=== PATIENT | male | born 1945 | race Caucasian/White ===

== ENCOUNTER 2016-06-02 07:54 | Emergency (ER) | payer OTHER ==
[~2016-06-02] VITALS: Ht 180.3 cm; Wt 82.0 kg
[~2016-06-02 07:54] MED LIST: CLON.5 PO; DILA2TAB4 PO; ENAL10TA7 PO; IBUP-232 PO; KLON2TAB PO; LOVA40TA PO; PROM25SU8 PO; REST30CA PO; TAMS0.4C67 PO; XANA1TAB6 PO
[2016-06-02 07:57] VITALS: BP 131/88; PULSE 76; RESP 16; TEMP 97.7; O2SAT 100
[2016-06-02] MEDS ORDERED: PROPARACAINE HCL 0.5% OPHT SOLN 15 ML BTL LEFT EYE ONE (08:15)
[2016-06-02] MEDS ORDERED: VIGA0.5D LEFT EYE (08:16)
--- NOTE | 2016-06-02 08:17 | PD ---
HPI Chief Complaint: Eye Problems/Injury Time Seen by Provider: 08:02 Travel History International Travel<30 days: No Contact w/Intl Traveler<30days: No Traveled to known affect area: No History of Present Illness HPI Patient is a 71-year-old male presents to emergency room with complaints of left eye redness and tearing. Patient reports that he accidentally fell asleep with his contacts on last night, reports that he woke up around 4 this a.m. and took out his contacts. Patient reports that when he woke up this morning, his left eye was red and tearing. Reports that his eye feels irritated and reports that he can't stop rubbing his eyes. Reports no vision changes or blurry visions. Patient reports that he must have rubbed his eyes when he was at the gym and had his contacts on. Patient with no complaints of pressure behind the eye, patient with no other complaints. PFSH Past Medical History Hx Anticoagulant Therapy: No Anxiety: Yes Cardiovascular Problems: Yes (HTN, CHOL) Diabetes: No Diminished Hearing: No Genitourinary: Yes (ENLARGED PROSTATE) Hypertension: Yes Musculoskeletal: Yes (BACK PAIN) Immunizations Current: No Past Surgical History Joint Replacement: Yes (RTHR) Social History Alcohol Use: Yes (JEANA OR VODKA DAILY) Tobacco Use: No (QUIT IN 1983) Substance Use: No Allergies-Medications (Allergen,Severity, Reaction): Coded Allergies: Versed (Unverified Allergy, Severe, Nausea/Vomiting, 06/02/16) Reported Meds & Prescriptions Reported Meds & Active Scripts Active Vigamox Opth Drops (Moxifloxacin Opth Drops) 0.5 % Soln 2 Drop LEFT EYE TID PRN 10 Days Promethazine Hcl (Promethazine HCl) 25 Mg Tab 25 Mg PO Q6H PRN FOR NAUSEA/VOMITING Flomax (Tamsulosin HCl) 0.4 Mg Cap 0.4 Mg PO DAILY Dilaudid (Hydromorphone HCl) 2 Mg Tab 2 Mg PO Q4H Motrin (Ibuprofen) 600 Mg Tab 600 Mg PO TID Reported Xanax 1 mg (Alprazolam) Alprazolam 1 mg Tab 1 Tab PO Q6H PRN Klonopin (Clonazepam) 2 Mg Tab 2 Mg PO DAILY Klonopin (Clonazepam) Unknown Strength Tab Unknown Dose PO BID Restoril 30 mg (Temazepam) 30 Mg Cap 1 Cap PO HS Enalapril Maleate/Hydroch (Enalapril Maleate & Hydrochlor) 10 Mg Tab 10 Mg PO DAILY Lovastatin 40 Mg Tab 40 Mg PO HS Review of Systems General / Constitutional: No: Fever Eyes: Positive: Drainage, Redness, Tearing, No: Blurred Vision, Photophobia, Foreign Body Sensation, Pain, Blind Spots, Visual changes, Blindness HENT: No: Headaches Cardiovascular: No: Chest Pain or Discomfort Respiratory: No: Shortness of Breath Gastrointestinal: No: Abdominal Pain Genitourinary: No: Dysuria Musculoskeletal: No: Pain Skin: No Rash Neurologic: No: Weakness Psychiatric: No: Depression Endocrine: No: Polydipsia Hematologic/Lymphatic: No: Easy Bruising Physical Exam Narrative GENERAL: No acute distress, SKIN: Warm and dry. HEAD: Atraumatic. Normocephalic. EYES: Pupils equal and round. Left eye scleral icterus. left eye with injection and clear drainage, patient with no fluorescein uptake, no signs of corneal abrasion, no dendritic lesions, no hyphema or hypopyon ENT: No nasal bleeding or discharge. Mucous membranes pink and moist. NECK: Trachea midline. No JVD. CARDIOVASCULAR: Regular rate and rhythm. No murmur appreciated. RESPIRATORY: No accessory muscle use. Clear to auscultation. Breath sounds equal bilaterally. GASTROINTESTINAL: Abdomen soft, non-tender, nondistended. Hepatic and splenic margins not palpable. MUSCULOSKELETAL: No obvious deformities. No clubbing. No cyanosis. No edema. NEUROLOGICAL: Awake and alert. Motor grossly within normal limits. Normal speech. PSYCHIATRIC: Appropriate mood and affect; insight and judgment normal. Data Data Last Documented VS Vital Signs Date Time Temp Pulse Resp B/P Pulse Ox O2 Delivery O2 Flow Rate FiO2 06/02/16 07:57 97.7 76 16 131/88 100 Orders Proparacaine 0.5% Opth Soln (Alcaine 0.5 (06/02/16 08:15) MDM Medical Decision Making Medical Screen Exam Complete: Yes Emergency Medical Condition: Yes Differential Diagnosis conjunctivitis, corneal abrasion, blepharitis, orbital cellulitis, periorbital cellulitis Narrative Course Patient is a 71-year-old male who presents to emergency room with complaints of conjunctivitis to the left eye. Patient reports that he actually left his contacts in last night, he did wake up around 4:30 AM to take his contacts out. Patient woke up with increased redness and drainage from his left eye. Patient reports that his left eye feels irritated from rubbing his eyes. Patient with no vision changes. Patient does have glasses with him. Patient with no fluorescein uptake to left cornea. Patient with no corneal abrasion. Plan to start patient on antibiotics for conjunctivitis, he will follow up with his medical resident and return to emergency room as needed. Patient instructed to throw away his old pair of contacts and use a new pair. He is NOT to use contacts until his infection is completely healed. Diagnosis Primary Impression: Conjunctivitis Qualified Code: H10.32 - Acute conjunctivitis of left eye, unspecified acute conjunctivitis type Additional Instructions: Please use antibiotics as prescribed, for the first 2 days, apply 2 drops to your left eye every 2 hours while awake, then for the next 8 days, apply three times per day Throw away your old pair of contacts DO NOT USE CONTACTS UNTIL INFECTION IS COMPLETELY HEALED Follow up with your medical resident Return to ER as needed or if symptoms persist or worsen Med/Other Pt SpecificInfo: Prescription(s) given Scripts Moxifloxacin Opth Drops (Vigamox Opth Drops)0.5 % Soln2 Drop LEFT EYE TID PRN ( Infection) 10 Days Ref 0 Prov:Kelly Mckinley DO 06/02/16 Disposition: 01 DISCHARGE HOME Condition: Stable Kelly Mckinley DO Jun 02, 2016 08:17
[2016-06-02] MEDS ORDERED: ENAL10TA PO (08:19)
[2016-06-02] MEDS ORDERED: CLON2TAB PO (08:19)
[2016-06-02] MEDS ORDERED: TRIA37.53 PO (08:19)
[2016-06-02] MEDS ORDERED: TAMS0.4C4 PO (08:19)
[2016-06-02] MEDS ORDERED: TEMA30CA PO (08:19)
[2016-06-02] MEDS ORDERED: XANA2TAB2 PO (08:19)
[2016-06-02] MEDS ORDERED: LOVA40TA PO (08:19)
[2016-06-02] MEDS ORDERED: VIAG100T PO (08:20)
== END 2016-06-02 08:29 | disposition home or self-care (01) ==
LOC: PHED 07:54
DX: H10.32 Unspecified acute conjunctivitis, left eye (principal); I10 Essential (primary) hypertension; N40.0 Benign prostatic hyperplasia without lower urinary tract symptoms; Z87.891 Personal history of nicotine dependence
CPT/HCPCS: 99282

== ENCOUNTER 2017-04-06 09:08 | Emergency (ER) | payer OTHER ==
[~2017-04-06] VITALS: Ht 177.8 cm; Wt 81.0 kg
[~2017-04-06 09:08] MED LIST changes: -CLON.5 PO; +CLON2TAB PO; -DILA2TAB4 PO; +ENAL10TA PO; -ENAL10TA7 PO; -IBUP-232 PO; -KLON2TAB PO; -PROM25SU8 PO; -REST30CA PO; +TAMS0.4C4 PO; -TAMS0.4C67 PO; +TEMA30CA PO; +TRIA37.53 PO; +VIAG100T PO; +VIGA0.5D LEFT EYE; -XANA1TAB6 PO; +XANA2TAB2 PO
[2017-04-06 09:13] VITALS: BP 130/71; PULSE 68; RESP 16; TEMP 97.5; O2SAT 100
--- NOTE | 2017-04-06 09:30 | PD ---
HPI Chief Complaint: Dizziness Time Seen by Provider: 09:29 Travel History International Travel<30 days: No Contact w/Intl Traveler<30days: No Traveled to known affect area: No History of Present Illness HPI Patient presents with complaints of new onset dizziness for 2-3 days. Reports good fluid intake. States he worked out this morning with mild fuzziness and onset of nausea approximate 4 hours after. Past medical history for hypertension and BPH. States the dizziness stays with him and is not aggravated by changing position. Head movement does worsen the dizziness. Denies any chest pain shortness of breath urinary or bowel symptoms. Denies headache. PFSH Past Medical History Hx Anticoagulant Therapy: No Anxiety: Yes Cardiovascular Problems: Yes (HTN, CHOL) Diabetes: No (PREDIABETES) Diminished Hearing: No Genitourinary: Yes (ENLARGED PROSTATE) Hypertension: Yes Musculoskeletal: Yes (BACK PAIN) Immunizations Current: No Past Surgical History Joint Replacement: Yes (RTHR) Social History Alcohol Use: Yes (JEANA OR VODKA DAILY) Tobacco Use: No (QUIT IN 1983) Substance Use: No Allergies-Medications (Allergen,Severity, Reaction): Coded Allergies: midazolam (Unverified Allergy, Severe, Nausea/Vomiting, 04/06/17) Reported Meds & Prescriptions Reported Meds & Active Scripts Active Reported Ambien (Zolpidem Tartrate) 10 Mg Tab 10 Mg PO HS PRN Viagra (Sildenafil Citrate) 100 Mg Tab 100 Mg PO DAILY PRN Triamterene-Hydrochlorothiazide 37.5-25 Mg Cap 1 Cap PO DAILY Tamsulosin (Tamsulosin HCl) 0.4 Mg Cap 0.4 Mg PO HS Lovastatin 40 Mg Tab 40 Mg PO DAILY Enalapril (Enalapril Maleate) 10 Mg Tab 10 Mg PO DAILY Clonazepam 2 Mg Tab 2 Mg PO BID Temazepam 30 Mg Cap 30 Mg PO HS PRN Xanax (Alprazolam) 2 Mg Tab 2 Mg PO Q8H PRN Review of Systems General / Constitutional: No: Fever Eyes: No: Visual changes HENT: No: Headaches Cardiovascular: Positive: Other (dizziness), No: Chest Pain or Discomfort Respiratory: No: Shortness of Breath Gastrointestinal: No: Abdominal Pain Genitourinary: No: Dysuria Musculoskeletal: No: Pain Skin: No Rash Neurologic: No: Weakness Psychiatric: No: Depression Endocrine: No: Polydipsia Hematologic/Lymphatic: No: Easy Bruising Physical Exam Narrative GENERAL: Well-nourished, well-developed patient. SKIN: Focused skin assessment warm/dry. HEAD: Normocephalic. EYES: No scleral icterus. No injection or drainage. NECK: Supple, trachea midline. No JVD or lymphadenopathy. CARDIOVASCULAR: Regular rate and rhythm without murmurs, gallops, or rubs. RESPIRATORY: Breath sounds equal bilaterally. No accessory muscle use. GASTROINTESTINAL: Abdomen soft, non-tender, nondistended. MUSCULOSKELETAL: No cyanosis, or edema. BACK: Nontender without obvious deformity. No CVA tenderness. Data Data Last Documented VS Vital Signs Date Time Temp Pulse Resp B/P (MAP) Pulse Ox O2 Delivery O2 Flow Rate FiO2 04/06/17 10:19 75 18 119/70 (86) 76 18 140/86 (104) 74 17 140/87 (104) 04/06/17 10:00 97 Room Air 04/06/17 09:13 97.5 Orders Orders Complete Blood Count With Diff (04/06/17 09:38) Comprehensive Metabolic Panel (04/06/17 09:38) Magnesium (Mg) (04/06/17 09:38) Ckmb (Isoenzyme) Profile (04/06/17 09:38) Troponin I (04/06/17 09:38) Ct Brain W/O Iv Contrast(Rout) (04/06/17 09:38) Ecg Monitoring (04/06/17 09:38) Iv Access Insert/Monitor (04/06/17 09:38) Oximetry (04/06/17 09:38) Meclizine (Antivert) (04/06/17 09:45) Ondansetron Inj (Zofran Inj) (04/06/17 09:45) Sodium Chloride 0.9% Flush (Ns Flush) (04/06/17 09:45) Sodium Chlor 0.9% 1000 Ml Inj (Ns 1000 M (04/06/17 09:38) Orthostatic Vital Signs (04/06/17 09:38) Labs Laboratory Tests Test 04/06/17 09:46 White Blood Count 7.1 TH/MM3 Red Blood Count 4.74 MIL/MM3 Hemoglobin 14.3 GM/DL Hematocrit 44.3 % Mean Corpuscular Volume 93.5 FL Mean Corpuscular Hemoglobin 30.3 PG Mean Corpuscular Hemoglobin Concent 32.3 % Red Cell Distribution Width 13.0 % Platelet Count 174 TH/MM3 Mean Platelet Volume 7.9 FL Neutrophils (%) (Auto) 82.7 % Lymphocytes (%) (Auto) 10.7 % Monocytes (%) (Auto) 3.9 % Eosinophils (%) (Auto) 2.0 % Basophils (%) (Auto) 0.7 % Neutrophils # (Auto) 5.9 TH/MM3 Lymphocytes # (Auto) 0.8 TH/MM3 Monocytes # (Auto) 0.3 TH/MM3 Eosinophils # (Auto) 0.1 TH/MM3 Basophils # (Auto) 0.0 TH/MM3 CBC Comment DIFF FINAL Differential Comment Blood Urea Nitrogen 17 MG/DL Creatinine 0.75 MG/DL Random Glucose 127 MG/DL Total Protein 6.9 GM/DL Albumin 3.4 GM/DL Calcium Level 8.7 MG/DL Magnesium Level 2.1 MG/DL Alkaline Phosphatase 66 U/L Aspartate Amino Transf (AST/SGOT) 21 U/L Alanine Aminotransferase (ALT/SGPT) 21 U/L Total Bilirubin 1.0 MG/DL Sodium Level 139 MEQ/L Potassium Level 3.8 MEQ/L Chloride Level 106 MEQ/L Carbon Dioxide Level 23.4 MEQ/L Anion Gap 10 MEQ/L Estimat Glomerular Filtration Rate 103 ML/MIN Total Creatine Kinase 76 U/L Troponin I LESS THAN 0.02 NG/ML MDM Medical Decision Making Medical Screen Exam Complete: Yes Emergency Medical Condition: Yes Differential Diagnosis Vertigo, dysrhythmia, carotid stenosis, ACS, electrolyte imbalance, orthostatic hypotension Narrative Course Assessment and plan discussed with patient and at bedside. 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 EKG revealed a junctional rhythm rate of 63 however P waves were observed on bedside monitor. Last [address] 04/06/17 0938 Signed Impressions: Service Date/Time: Thursday, April 06, 2017 09:57 - CONCLUSION: Negative for an acute process. Amadou Velez MD FACR Mild orthostatic hypotension noted, encourage good fluid intake. Nausea resolved. Dizziness improved with meclizine. Diagnosis Primary Impression: BPV (benign positional vertigo) Qualified Codes: H81.10 - Benign paroxysmal vertigo, unspecified ear Patient Instructions: General Instructions Additional Instructions: Encourage good fluid intake. Meclizine as needed. Follow-up with PCP. Return to emergency room with any onset of new symptoms. Med/Other Pt SpecificInfo: Prescription(s) given Scripts Meclizine (Meclizine) 25 Mg Tab 25 MG PO TID Y for VERTIGO, #20 TAB 0 Refills Prov: Eddie Olivares MD 04/06/17 Disposition: 01 DISCHARGE HOME Condition: Good Eddie Olivares MD Apr 06, 2017 09:30
[2017-04-06] MEDS ORDERED: AMBI10TA PO (09:35)
[2017-04-06] MEDS ORDERED: SODIUM CHLOR 0.9% 1000 ML INJ 1,000 ML IV ONE (09:38)
[2017-04-06] MEDS ORDERED: MECLIZINE HCL 25 MG TAB PO ONE (09:45)
[2017-04-06] MEDS ORDERED: SODIUM CHLORIDE 0.9% FLUSH 10 ML FLUSH IVF PRN (09:45)
[2017-04-06] MEDS ORDERED: ONDANSETRON HCL 4 MG/2 ML VIAL IVP ONE (09:45)
[2017-04-06 10:00] VITALS: O2SAT 97
[2017-04-06 10:02] LABS: AUTOMATED NEUTROPHIL # 5.9 TH/MM3 (1.8-7.7); BASOPHIL % 0.7 % (0.0-2.0); EOSINOPHIL # 0.1 TH/MM3 (0-0.4); HEMATOCRIT 44.3 % (39.0-51.0); HEMOGLOBIN 14.3 GM/DL (13.0-17.0); LYMPH % 10.7 % (9.0-44.0); LYMPHOCYTE # 0.8 TH/MM3 (1.0-4.8); MEAN CELL VOLUME 93.5 FL (80.0-100.0); MEAN CORPUSCULAR HEMOGLOBIN 30.3 PG (27.0-34.0); MEAN CORPUSCULAR HGB CONC 32.3 % (32.0-36.0); MEAN PLATELET VOLUME 7.9 FL (7.0-11.0); MONO % 3.9 % (0.0-8.0); MONOCYTE # 0.3 TH/MM3 (0-0.9); NEUT % 82.7 % (16.0-70.0); PLATELET COUNT 174 TH/MM3 (150-450); RED BLOOD COUNT 4.74 MIL/MM3 (4.50-5.90); WHITE BLOOD COUNT 7.1 TH/MM3 (4.0-11.0)
[2017-04-06 10:10] LABS: CHLORIDE 106 MEQ/L (98-107); SODIUM (NA) 139 MEQ/L (136-145)
--- NOTE | 2017-04-06 10:11 | RADRPT ---
EXAM DATE/TIME: 04/06/2017 09:57 [facility] COMPARISON: No previous studies available for comparison. INDICATIONS : Dizziness, nausea. RADIATION DOSE: 65.93 CTDIvol (mGy) MEDICAL HISTORY : Cardiovascular disease. Hypercholesterolemia. Hypertension. SURGICAL HISTORY : Cholecystectomy. Hernia ENCOUNTER: Initial ACUITY: 3 days PAIN SCALE: 0/10 LOCATION: cranial TECHNIQUE: Multiple contiguous axial images were obtained of the head. Using automated exposure control and adj ustment of the mA and/or kV according to patient size, radiation dose was kept as low as reasonably a chievable to obtain optimal diagnostic quality images. DICOM format image data is available electro nically for review and comparison. FINDINGS: CEREBRUM: The ventricles are normal for age. No evidence of midline shift, mass lesion, hemorrhage or acute in farction. No extra-axial fluid collections are seen. POSTERIOR FOSSA: The cerebellum and brainstem are intact. The 4th ventricle is midline. The cerebellopontine angle i s unremarkable. EXTRACRANIAL: The visualized portion of the orbits is intact. SKULL: The calvaria is intact. No evidence of skull fracture. CONCLUSION: Negative for an acute process. Amadou Velez MD FACR on April 06, 2017 at 10:09 Board Certified Radiologist. This report was verified electronically.
[2017-04-06 10:13] LABS: CALCIUM 8.7 MG/DL (8.5-10.1)
[2017-04-06 10:14] LABS: ALBUMIN 3.4 GM/DL (3.4-5.0); BICARBONATE 23.4 MEQ/L (21.0-32.0); BLOOD UREA NITROGEN 17 MG/DL (7-18); GLUCOSE,RANDOM 127 MG/DL (74-106); MAGNESIUM 2.1 MG/DL (1.5-2.5)
[2017-04-06 10:17] LABS: ALT (GPT) 21 U/L (12-78); AST (GOT) 21 U/L (15-37); CREATININE 0.75 MG/DL (0.60-1.30); GLOMERULAR FILTRATION RATE 103 ML/MIN (>89)
[2017-04-06 10:19] VITALS: BP_SYST 119; BP_SYST 140; BP_DIAS 70; BP_DIAS 86; BP_DIAS 87; RESP 17; RESP 18
[2017-04-06 10:19] LABS: TOTAL PROTEIN 6.9 GM/DL (6.4-8.2)
[2017-04-06 10:20] LABS: ALKALINE PHOSPHATASE 66 U/L (45-117)
[2017-04-06 10:22] LABS: TROPONIN I LESS THAN 0.02 NG/ML (0.02-0.05)
[2017-04-06] MEDS ORDERED: MECL-62 PO (11:14)
[2017-04-06 11:30] VITALS: BP 151/90
--- NOTE | 2017-04-06 16:54 | EKG ---
Date Performed: 04/06/2017 Time Performed: 09:30:51 PTAGE: 71 years EKG: JUNCTIONAL RHYTHM ABNORMAL RHYTHM ECG NO PREVIOUS TRACING DOCTOR: Snow Escalera Interpretating Date/Time 04/06/2017 16:53:51
== END 2017-04-06 11:32 | disposition home or self-care (01) ==
LOC: PHED 09:08
DX: H81.10 Benign paroxysmal vertigo, unspecified ear (principal); I10 Essential (primary) hypertension; N40.0 Benign prostatic hyperplasia without lower urinary tract symptoms; R94.31 Abnormal electrocardiogram [ECG] [EKG]; F41.9 Anxiety disorder, unspecified; Z79.899 Other long term (current) drug therapy; Z88.8 Allergy status to other drugs, medicaments and biological substances
CPT/HCPCS: 70450; 80053; 82550; 83735; 84484; 85025; 93005; 96361; 96374; 99285; J2405; J7030